=== PATIENT | male | born 1990 | race Caucasian/White ===

== ENCOUNTER 2017-10-17 22:59 | Emergency (ER) | payer OTHER ==
[~2017-10-17] VITALS: Ht 182.9 cm; Wt 94.3 kg
[~2017-10-17 22:59] MED LIST: CLARITIN10 MG PO; FLONASE 0.05%50 MCG NASAL; KEFLEX500 MG PO; NOHOMEMEDICATIONS; NORCO 5-325 TA1 EACH PO
[2017-10-17 23:22] LABS: URINE BILIRUBIN NEGATIVE (Negative); URINE BLOOD NEGATIVE (Negative); URINE CLARITY SL CLOUDY; URINE COLOR YELLOW; URINE GLUCOSE-RANDOM NEGATIVE (Negative); URINE KETONES NEGATIVE (Negative); URINE LEUKOCYTES-REFLEX NEGATIVE (Negative); URINE NITRITE-REFLEX NEGATIVE (Negative); URINE PROTEIN NEGATIVE (Negative); URINE SPECIFIC GRAVITY 1.015 (1.005-1.030); URINE UROBILINOGEN 0.2 E.U./dl (0.2-1.0)
[2017-10-17] MEDS ORDERED: ROBAXIN500 MG PO (23:56)
[2017-10-18 00:06] VITALS: BP 126/67
[2017-10-18 10:21] LABS: CASTS None Seen /LPF (None Seen); SQUAMOUS 0-3 Few /LPF (0-3); URINE RBC 0-2 Rare /HPF (0-2); URINE WBC-REFLEX None Seen /HPF (0-5)
[2017-10-18 10:25] LABS: AMORPHOUS PHOSPHATES Moderate /LPF (None Seen)
== END 2017-10-18 00:07 | disposition home or self-care (01) ==
LOC: M.ERS 22:59
PROVIDERS: Nurse Practitioner Family
DX: S29.012A Strain of muscle and tendon of back wall of thorax, initial encounter (principal); X58.XXXA Exposure to other specified factors, initial encounter; Y93.89 Activity, other specified; Y92.89 Other specified places as the place of occurrence of the external cause; Y99.8 Other external cause status; H92.09 Otalgia, unspecified ear

== ENCOUNTER 2018-09-06 17:15 | Emergency (ER) | payer OTHER ==
[~2018-09-06] VITALS: Ht 182.9 cm; Wt 90.7 kg
[~2018-09-06 17:15] MED LIST changes: +ROBAXIN500 MG PO
[2018-09-06] MEDS ORDERED: FLEXERIL PO (17:34)
[2018-09-06 17:53] VITALS: BP 129/99
== END 2018-09-06 17:54 | disposition home or self-care (01) ==
LOC: M.ERS 17:15
DX: M54.5 Low back pain (principal)

== ENCOUNTER 2018-12-29 00:55 | Emergency (ER) | payer OTHER ==
[~2018-12-29] VITALS: Ht 182.9 cm; Wt 93.0 kg
[~2018-12-29 00:55] MED LIST changes: +FLEXERIL PO
[2018-12-29 01:27] LABS: HEMATOCRIT 47.6 % (42.0-52.0); HEMOGLOBIN 16.5 gm/dL (14.0-18.0); MCH 30.2 pg (26.0-34.0); MCHC 34.7 g/dL (28.0-37.0); MCV 87.1 fL (80.0-100.0); MPV 8.2 fl. (7.2-11.1); NUCLEATED RBCS 0 /100WBC; PLATELET COUNT* 232 thou/uL (150-400); RBC 5.46 mil/uL (4.50-6.00); RDW-CV 12.7 % (10.5-14.5)
[2018-12-29 01:35] LABS: CALCIUM 9.2 mg/dL (8.5-10.1); CREATININE 1.1 mg/dL (0.6-1.3)
[2018-12-29 01:39] LABS: ALBUMIN 4.4 g/dL (3.4-5.0); TOTAL BILIRUBIN 0.7 mg/dL (<0.1-1.0); TOTAL PROTEIN 8.3 g/dL (6.4-8.2)
[2018-12-29 01:50] LABS: ABSOLUTE EOSINOPHILS 0.4 thou/uL (0.0-0.7); ABSOLUTE MONOCYTES 0.5 thou/uL (0.0-1.2); ABSOLUTE NEUTROPHILS 11.1 thou/uL (1.6-8.1)
[2018-12-29 01:51] LABS: PLATELET ESTIMATE ADEQUATE
[2018-12-29] MEDS ORDERED: HYDROCODON-ACE1 EAC7 PO (04:18)
[2018-12-29] MEDS ORDERED: ZOFRAN ODT4 MG PO (04:18)
[2018-12-29 04:35] VITALS: BP 129/52
== END 2018-12-29 04:37 | disposition home or self-care (01) ==
LOC: M.ERS 00:55
PROVIDERS: Personal Emergency Response Attendant
DX: A08.4 Viral intestinal infection, unspecified (principal); R11.2 Nausea with vomiting, unspecified